=== PATIENT | female | born 1960 | race Caucasian/White ===

== ENCOUNTER 2020-06-18 11:24 | Emergency (ER) | payer MEDICAID, SELFPAY ==
[2020-06-18 11:52] VITALS: BP 166/92; PULSE 78; RESP 16; TEMP 36.7; O2SAT 99; BMI 29.2
--- NOTE | 2020-06-18 12:06 | ED_ITS ---
HPI - General Adult General Chief complaint: General Medical Stated complaint: shoulder pain Time Seen by Provider: 06/18/20 12:06 History of Present Illness HPI narrative: Patient complains of pain to the left shoulder, the left upper arm, the left trapezius area and the left upper back after a slip and fall coming into a store, this happened an hour ago, she did not hit her head she did not hurt her neck she has no numbness no weakness no paresthesias no loss of consciousness Related Data Previous Rx's Medication Instructions Recorded cyclobenzaprine 5 mg PO TID PRN #10 tab 06/18/20 hydrocodone-acetaminophen 1 tab PO Q6H PRN #10 tab 06/18/20 ibuprofen 600 mg PO Q6H PRN #20 tab 06/18/20 Allergies Allergy/AdvReac Type Severity Reaction Status Date / Time No Known Allergies Allergy Verified 06/18/20 11:51 Review of Systems Review of Systems: Positive for left shoulder and upper back pain after fall Negatives are no head injury no headache no dizziness no confusion no weakness no loss of consciousness no vision changes no vomiting no neck pain no abdominal pain, no numbness no weakness or paresthesias Yes all other systems are reviewed and are negative [facility] Past Medical History Attestation statement: The following information was validated with the patient. [facility] Narrative: Medical history of heart attack in the past and high blood pressure Source: nursing notes reviewed Medical History (Updated 06/18/20 @ 12:12 by SUZANNE Yun) HTN (hypertension) Hypothyroid STEMI (ST elevation myocardial infarction) Social History Social History Alcohol intake: never Smoked in Last 30 Days: No Use of substances other than those prescribed or required for medical reasons: No Advance Directives: No Advance Directives Information Provided: No Physical Exam Vital Signs: Vital Signs: Last Vital Signs Temp 98.1 F 06/18/20 11:52 Pulse 78 06/18/20 11:52 Resp 16 06/18/20 11:52 BP 166/92 H 06/18/20 11:52 Pulse Ox 99 06/18/20 11:52 Body Mass Index 29.2 General appearance comfortable relax cooperative no acute distress, A&O x3 The head is normocephalic and atraumatic The neck is supple with out tenderness The chest wall is nontender no respiratory distress The abdomen is soft nontender The extremities is full range of motion in all joints although there is pain with range of motion of the left shoulder, there is tenderness of the left trapezius the left subscapular area and the muscles between the scapula and the thoracic spine as well as tenderness over the deltoid area, there is no swelling no ecchymosis, skin is normal and intact and left arm is neurovascular intact distal Other extremities are normal Neuro no focal deficits Course Course Course Narrative: Patient with a fall on the left side with pain consistent with muscle strain of the left shoulder and left upper back is discharged home Discharge Plan Discharge Clinical Impression: Left shoulder strain Qualifiers: Encounter type: initial encounter Qualified Code(s): S46.912A - Strain of unspecified muscle, fascia and tendon at shoulder and upper arm level, left arm, initial encounter Fall Qualifiers: Encounter type: initial encounter Qualified Code(s): W19.XXXA - Unspecified fall, initial encounter Patient Disposition: Home, Self-Care Additional Instructions: No sign of any dangerous injury now Follow with orthopedist or primary doctor for shoulder pain as needed Return to ER any time any worse condition or concerns Prescriptions: New ibuprofen 600 mg tablet 600 mg PO Q6H PRN (Reason: pain) Qty: 20 RF: 0 hydrocodone-acetaminophen 5-325 mg tablet 1 tab PO Q6H PRN (Reason: pain) Qty: 10 RF: 0 cyclobenzaprine 5 mg tablet 5 mg PO TID PRN (Reason: muscle spasm) Qty: 10 RF: 0 Referrals: Israel Tejeda MD [Physician] - 2 days (Left shoulder injury)
== END 2020-06-18 12:33 | disposition home or self-care (01) ==
LOC: HO.ED 12:20
PROVIDERS: Emergency Provider Emergency Medicine Emergency Medical Services; PCP Internal Medicine
DX: S46.912A Strain of unspecified muscle, fascia and tendon at shoulder and upper arm level, left arm, initial encounter (principal); M79.602 Pain in left arm; W01.0XXA Fall on same level from slipping, tripping and stumbling without subsequent striking against object, initial encounter; Y93.9 Activity, unspecified; Y92.512 Supermarket, store or market as the place of occurrence of the external cause; Y99.9 Unspecified external cause status; Z79.899 Other long term (current) drug therapy
CPT/HCPCS: 99283

== ENCOUNTER 2020-10-19 09:31 | Emergency (ER) | payer MEDICAID, SELFPAY ==
--- NOTE | ~2020-10-19 | CT_ITS ---
EXAMINATION: CT HEAD WITHOUT CONTRAST CLINICAL INFORMATION: Fall, hit head. On aspirin. COMPARISON: None TECHNIQUE: Contiguous axial imaging was performed from the skull base to vertex without intravenous administration of contrast. This CT examination was performed using dose optimization techniques as appropriate, variously including the following: *Automated exposure control *Adjustment of mA and/or kV according to patient size (this includes techniques or standardized protocols for targeted exams where dose is matched to indication/reason for exam; i.e. extremities or head) *Use of iterative reconstruction technique DLP: 623 mGy-cm FINDINGS: There is no evidence of acute intracranial hemorrhage or territorial infarction. No abnormal mass effect or midline shift is seen. Hill to white matter differentiation is well preserved. No extra-axial fluid collections are identified. The ventricles are normal in size. There is no abnormal attenuation within the brain parenchyma. The osseous structures and soft tissues are normal. The mastoid air cells and visualized portions of the paranasal sinuses are well aerated. CT/CT head/brain wo con IMPRESSION: No acute intracranial process seen.
[2020-10-19 09:34] VITALS: BP 178/93; PULSE 72; RESP 18; TEMP 37; O2SAT 99; BMI 31.1
--- NOTE | 2020-10-19 11:01 | ED.HEATRA ---
HPI - Head Injury General Chief complaint: Head Injury Stated complaint: head pain Time Seen by Provider: 10/19/20 10:37 Source: patient Mode of arrival: ambulatory History of Present Illness HPI Narrative: 60-year-old female with a past medical history of HTN, hypothyroid, STEMI s/p stent placement on ASA, presenting to the ED complaining of a headache s/p mechanical fall at work yesterday. Patient states she was bent over putting pans into cart when lost balance and fell onto side hitting head on ground, denies LOC, denies symptoms prior to fall. Was ambulatory after fall. Reports swelling to face/myalgias. Denies vision change/loss, lightheadedness/dizziness, CP/SOB, nausea/vomiting, neck/back pain, urinary incontinence/retention, weakness MD Complaint: head pain and fall Related Data Previous Rx's Medication Instructions Recorded cyclobenzaprine 5 mg PO TID PRN #10 tab 06/18/20 hydrocodone-acetaminophen 1 tab PO Q6H PRN #10 tab 06/18/20 ibuprofen 600 mg PO Q6H PRN #20 tab 06/18/20 Allergies Allergy/AdvReac Type Severity Reaction Status Date / Time No Known Allergies Allergy Verified 10/19/20 09:39 Review of Systems Review of Systems: Constitutional: No Fever, No Chills ENT/Mouth: No Ear Pain, No Nasal Congestion, No sore throat Eyes: No Eye Pain, + Swelling, No Vision Changes Cardiovascular: No Chest Pain, No SOB Respiratory: No Cough Gastrointestinal: No Nausea, No Vomiting, No Abdominal pain Genitourinary: No Urinary Incontinence/retention Musculoskeletal: + joint pain, + Myalgias, No Joint Swelling Skin: No Skin Lesions, No rash Neuro: No Weakness, No Numbness, No Paresthesias, No Loss of Consciousness, No Dizziness, + Headache Yes all other systems are reviewed and are negative Neurologic: Denies Abnormal speech present and Denies Sensory deficit (Neuro) [facility] Past Medical History Attestation statement: The following information was validated with the patient. Medical History (Updated 10/19/20 @ 11:38 by SUZANNE Cheney) HTN (hypertension) Hypothyroid STEMI (ST elevation myocardial infarction) Social History Social History Alcohol intake: never Advance Directives: No Advance Directives Information Provided: No Patient : No Physical Exam Vital Signs: Vital Signs: Last Vital Signs Temp 98.6 F 10/19/20 09:34 Pulse 72 10/19/20 09:34 Resp 18 10/19/20 09:34 BP 178/93 H 10/19/20 09:34 Pulse Ox 99 10/19/20 09:34 Body Mass Index 31.1 Const: General: cooperative, healthy appearing, comfortable and no acute distress Orientation/consciousness: patient oriented x3 Limitations: no limitations HENMT: Other: + tenderness to palpation to periorbital areas and bilateral zygomatic bones without palpable step-off or deformity, no erythema/ecchymosis or swelling. EOMs intact without pain or entrapment Head: Yes normal to inspection and Yes No palpable skull fracture present Ears: hearing grossly normal bilaterally and TM's normal bilaterally General nose exam: Normal external nose present Face and sinus: Yes normal facial exam Mouth: Normal oral and palatal mucosa present Throat: Yes posterior oropharynx normal, Yes tonsils normal, Yes uvula midline and No peritonsillar mass Eyes: General: appearance normal, both eyes and all related structures Sclerae: sclerae normal Corneas: corneas normal Pupils: Equal, round and reactive pupils present EOM: EOMs intact bilaterally Neck: Other: No midline cervical spinous tenderness or step-offs Neck: Yes normal visual inspection and Yes no meningeal signs Chest: Chest palpation & inspection: normal inspection of the chest Resp: Effort & Inspection: normal respiratory effort and not labored Cardio: Rate: regular rate GI: Inspection: Yes normal to inspection Palpation (GI): Soft to palpation, nontender, no guarding and not rigid Skin: Other: Small ecchymosis noted to right knee and right hand Rashes: no rashes Wounds: no wounds Neuro: General: patient oriented x3, tone normal, moves all extremities, no meningeal signs, no focal motor deficits and CN's II-XI intact bilaterally Cranial nerves: Yes Equal, round and reactive pupils present Cognition (Neuro): normal cognition Speech: No Abnormal speech present Gait exam (Neuro): Normal gait present Motor exam (neuro): 5/5 motor strength present throughout, Pronator motor function not present and no tremor noted Sensory Exam: No Sensory deficit (Neuro) Coordination: [id number] test normal Extrem: General: Yes normal to inspection Course Course Course Narrative: CT head/brain wo con IMPRESSION: No acute intracranial process seen. >> results discussed with patient including worrisome signs and symptoms and strict return precautions. MDM - Head Injury MDM Narrative Medical decision making narrative: 60-year-old female with a past medical history of HTN, hypothyroid, STEMI s/p stent placement on ASA, presenting to the ED complaining of a headache s/p mechanical fall at work yesterday. On exam VSS, NAD/well-appearing, no focal neuro deficits, no midline spinous tenderness or red flag symptoms. Physical exam as above. Will obtain head CT to rule out ICH due to ASA use. Likely MSK pain/myalgias. Low concern for fractures Plan: Head CT Medical Records Attestation: I reviewed the patient's medical records. Lab Data Attestation: I reviewed the patient's lab results. Discharge Plan Discharge Clinical Impression: Closed head injury Patient Disposition: Home, Self-Care Instructions: Head Injury (ED) Additional Instructions: Your head CT was unremarkable It is possible you have a slight concussion Take Tylenol and Motrin at home for pain/swelling Ice painful areas Rest Follow-up with her doctor If symptoms persist or worsen, have constant worsening headache, nausea/vomiting, weakness return to the ED Prescriptions: No Action ibuprofen 600 mg tablet 600 mg PO Q6H PRN (Reason: pain) Qty: 20 RF: 0 hydrocodone-acetaminophen 5-325 mg tablet 1 tab PO Q6H PRN (Reason: pain) Qty: 10 RF: 0 cyclobenzaprine 5 mg tablet 5 mg PO TID PRN (Reason: muscle spasm) Qty: 10 RF: 0 Referrals: Aaron Cook MD [Primary Care Provider] - 2 days
[2020-10-19 11:43] VITALS: BP 155/88; PULSE 78; RESP 16; TEMP 36.9; O2SAT 97
[2020-10-19] MEDS: Acetaminophen 325 MG TABLET 650 MG PO (11:57)
== END 2020-10-19 12:07 | disposition home or self-care (01) ==
PROVIDERS: Emergency Provider Emergency Medicine Emergency Medical Services; PCP Internal Medicine
DX: G44.309 Post-traumatic headache, unspecified, not intractable (principal); I10 Essential (primary) hypertension; E03.9 Hypothyroidism, unspecified; Z79.899 Other long term (current) drug therapy
CPT/HCPCS: 70450; 99284

== ENCOUNTER → 2020-10-24 14:07 | Outpatient (BNVA) | payer OTHER, SELFPAY | PROVIDERS: PCP Internal Medicine; Visit Provider Internal Medicine | DX: S00.83XA Contusion of other part of head, initial encounter (principal); W31.89XA Contact with other specified machinery, initial encounter | CPT/HCPCS: 99203 ==

== ENCOUNTER → 2020-10-28 12:59 | Outpatient (BNVA) | payer OTHER, SELFPAY | PROVIDERS: PCP Internal Medicine; Visit Provider Internal Medicine | DX: S06.9X0A Unspecified intracranial injury without loss of consciousness, initial encounter (principal); X58.XXXA Exposure to other specified factors, initial encounter | CPT/HCPCS: 99213 ==

== ENCOUNTER → 2020-11-01 10:15 | Outpatient (BNVA) | payer OTHER, SELFPAY | PROVIDERS: PCP Internal Medicine; Visit Provider Internal Medicine | DX: S06.9X0D Unspecified intracranial injury without loss of consciousness, subsequent encounter (principal); X58.XXXD Exposure to other specified factors, subsequent encounter; J34.89 Other specified disorders of nose and nasal sinuses | CPT/HCPCS: 70160; 99214 ==

== ENCOUNTER → 2020-11-10 14:14 | Outpatient (BNVA) | payer OTHER, SELFPAY | PROVIDERS: PCP Internal Medicine; Visit Provider Internal Medicine | DX: S09.90XD Unspecified injury of head, subsequent encounter (principal); X58.XXXD Exposure to other specified factors, subsequent encounter | CPT/HCPCS: 99213 ==